=== PATIENT | female | born 1985 | race Two or more races ===

== ENCOUNTER 2019-04-09 22:28 | Emergency (ER) | payer MEDICAID ==
[~2019-04-09] VITALS: Ht 157.5 cm; Wt 62.7 kg
[2019-04-09 22:35] VITALS: Ht 157.5 cm; Wt 62.7 kg
[2019-04-10 01:36] LABS: UA SPECIFIC GRAVITY 1.015 (1.005-1.035); microscopic required? YES; urine erythrocyte TRACE (NEGATIVE)
[2019-04-10 01:59] LABS: BASOPHIL % 0.6 % (0-2); PLATELET COUNT 264 x10^3mcL (130-400); RED CELL DISTRIBUTION WIDTH 14.1 % (11.5-14.5)
[2019-04-10 02:21] LABS: CHLORIDE SERUM 104 mmol/L (98-107); POTASSIUM SERUM 3.7 mmol/L (3.5-5.1); SODIUM SERUM 139 mmol/L (136-145)
[2019-04-10 02:22] LABS: ALBUMIN 3.4 g/dL (3.4-5.0); ALKALINE PHOSPHATASE 48 U/L (46-116); ALT/SGPT 25 U/L (14-59); AST/SGOT 15 U/L (15-37); BILIRUBIN TOTAL 0.26 mg/dL (0.20-1.00); CALCIUM 7.9 mg/dL (8.5-10.1); CARBON DIOXIDE 25.1 mmol/L (21-32); CREATININE SERUM 0.6 mg/dL (0.6-1.0); GFR1 > 60 mL/min; GLUCOSE SERUM 99 mg/dL (74-106); TOTAL PROTEIN, SERUM 6.6 g/dL (6.4-8.2)
[2019-04-10 03:04] VITALS: BP 107/60
== END 2019-04-10 03:04 | disposition home or self-care (01) ==
LOC: ED 22:28
PROVIDERS: Emergency Medicine
DX: O23.01 Infections of kidney in pregnancy, first trimester (principal); Z3A.01 Less than 8 weeks gestation of pregnancy
CPT/HCPCS: J0696; J2405; J7030; J7060; Q0092